=== PATIENT | male | born 1975 | race Caucasian/White ===

== ENCOUNTER → 2017-08-06 | Outpatient (CLI) | payer OTHER | LOC: M.RAD 13:06 | DX: M81.0 Age-related osteoporosis without current pathological fracture (principal) ==

== ENCOUNTER → 2018-11-11 | Outpatient (CLI) | payer OTHER | LOC: M.RAD 13:30 | DX: M54.5 Low back pain (principal); E21.3 Hyperparathyroidism, unspecified ==

== ENCOUNTER → 2019-11-05 | Outpatient (CLI) | payer OTHER | LOC: M.RAD 09:00 | DX: M81.0 Age-related osteoporosis without current pathological fracture (principal); M85.88 Other specified disorders of bone density and structure, other site ==